=== PATIENT | female | born 1995 | race Caucasian/White ===

== ENCOUNTER 2018-02-16 13:01 | Outpatient (CLI) | payer OTHER ==
[2018-02-16 13:18] VITALS: BP 132/91
[2018-02-16] MEDS ORDERED: PRENATAL TABLE1 EAC3 PO (13:27)
[2018-02-16] MEDS ORDERED: IRON325 M1 PO (13:28)
[2018-02-16 13:40] VITALS: BP 119/80
[2018-02-16 14:36] LABS: BASOPHIL (%) 0.2 % (0-1); EOSINOPHIL (%) 0.2 % (0-5); HEMATOCRIT 33.3 % (36.0-46.0); HEMOGLOBIN 11.2 G/DL (11.9-15.5); LYMPHOCYTE (%) 15.4 % (15-42); MCH 29.4 PG (29.0-34.0); MCHC 33.6 G/DL (30.0-36.0); MCV 87.4 FL (83-99); MONOCYTE (%) 6.1 % (3-12); MONOCYTE COUNT 0.8 K/uL (0-0.8); NEUTROPHIL (%) 77.1 % (45-76); NEUTROPHIL COUNT 9.8 K/uL (1.8-6.4); PLATELET COUNT 286 K/uL (156-360); RBC DIS.WIDTH-CV 12.7 % (11.8-14.6); RED BLOOD COUNT 3.81 M/uL (3.80-5.20); WHITE BLOOD COUNT 12.7 K/uL (4.1-10.2)
[2018-02-16 15:03] LABS: ALBUMIN 3.5 G/DL (3.2-4.8); ALKALINE PHOSPHATASE 123 IU/L (3-129); ALT (GPT) 11 IU/L (3-49); AST (GOT) 13 IU/L (2-34); CHLORIDE 109 MEQ/L (99-109); CREATININE 0.6 MG/DL (0.6-1.3); GFR ESTIMATE (CALCULATED) > 59 mL/min/; GLUCOSE 75 mg/dL (70-99); POTASSIUM 4.5 MEQ/L (3.7-5.4); SODIUM 140 MEQ/L (136-147); TOTAL BILIRUBIN 0.3 MG/DL (0.0-1.0); TOTAL PROTEIN 6.4 G/DL (6.4-8.3); UREA NITROGEN (BUN) 6 mg/dL (9-23)
== END 2018-02-16 15:15 | disposition home or self-care (01) ==
LOC: LDRP-OP 13:01 → 2WEST 13:02 → LDRP-OP 06-06 18:48
PROVIDERS: Advanced Practice Midwife
DX: O35.8XX0 Maternal care for other (suspected) fetal abnormality and damage, not applicable or unspecified (principal); Z3A.28 28 weeks gestation of pregnancy
CPT/HCPCS: 59025; 80053; 85025; G0378

== ENCOUNTER 2018-04-13 11:43 | Inpatient (IN) | payer BC ==
[2018-04-13] VITALS (18 sets, daily range): BP systolic 132–172; BP diastolic 84–108
[~2018-04-13] VITALS: Ht 160 cm; Wt 87.9 kg
[~2018-04-13 11:43] MED LIST: IRON325 M1 PO; PRENATAL TABLE1 EAC3 PO
[2018-04-13 13:05] LABS: BASOPHIL (%) 0.3 % (0-1); EOSINOPHIL (%) 0.2 % (0-5); HEMATOCRIT 34.2 % (36.0-46.0); LYMPHOCYTE (%) 17.4 % (15-42); MCH 29.6 PG (29.0-34.0); MCHC 35.1 G/DL (30.0-36.0); MCV 84.4 FL (83-99); MONOCYTE COUNT 0.7 K/uL (0-0.8); NEUTROPHIL (%) 75.1 % (45-76); NEUTROPHIL COUNT 8.8 K/uL (1.8-6.4); PLATELET COUNT 231 K/uL (156-360); RBC DIS.WIDTH-CV 13.2 % (11.8-14.6); RBC DIS.WIDTH-SD 40.1 % (39-53); RED BLOOD COUNT 4.05 M/uL (3.80-5.20); WHITE BLOOD COUNT 11.7 K/uL (4.1-10.2)
[2018-04-13 13:14] LABS: ALBUMIN 3.6 g/dL (3.2-4.8); CHLORIDE 108 mEq/L (99-109); POTASSIUM 3.8 mEq/L (3.7-5.4); SODIUM 140 mEq/L (136-147)
[2018-04-13 13:16] LABS: GLUCOSE 70 mg/dL (70-99)
[2018-04-13 13:18] LABS: TOTAL BILIRUBIN 0.3 mg/dL (0.0-1.0)
[2018-04-13 13:20] LABS: ALKALINE PHOSPHATASE 162 IU/L (3-129); CREATININE 0.8 mg/dL (0.6-1.3); GFR ESTIMATE (CALCULATED) > 59 mL/min/
[2018-04-13 13:21] LABS: UREA NITROGEN (BUN) 6 mg/dL (9-23)
[2018-04-13 13:22] LABS: AST (GOT) 17 IU/L (2-34)
[2018-04-13 13:23] LABS: ALT (GPT) 14 IU/L (3-49); URIC ACID 6.3 mg/dL (3.1-9.2)
[2018-04-13 13:57] LABS: AMPHETAMINE NEGATIVE (500 ng/mL); BARBITURATES NEGATIVE (200 ng/mL); BENZODIAZEPINES NEGATIVE (150 ng/mL); BUPRENORPHINE NEGATIVE (10 ng/mL); COCAINE NEGATIVE (150 ng/mL); METHADONE NEGATIVE (200 ng/mL); METHAMPHETAMINE NEGATIVE (500 ng/mL); OPIATES (MORPHINE) NEGATIVE (100 ng/mL); OXYCODONE NEGATIVE (100 ng/mL); PHENCYCLIDINE NEGATIVE (25 ng/mL); PROPOXYPHENE NEGATIVE (300 ng/mL); THC CANNABINOIDS NEGATIVE (50 ng/mL); TRICYCLIC ANTIDEPRESSANTS NEGATIVE (300 ng/mL)
[2018-04-13 14:00] LABS: LACTATE DEHYDROGENASE 250 IU/L (20-246)
[2018-04-13 14:08] LABS: UR CREATININE CONCENTRATION 94.6 MG/DL
[2018-04-14] VITALS (23 sets, daily range): BP systolic 98–153; BP diastolic 56–92
[2018-04-15] VITALS (37 sets, daily range): BP systolic 115–175; BP diastolic 62–98
[2018-04-15] MEDS ORDERED: IBUPROFEN800 MG PO (22:05)
[2018-04-16 00:01] VITALS: BP 129/86
[2018-04-16 03:00] VITALS: BP 128/81
[2018-04-16 07:06] VITALS: BP 128/76
[2018-04-16 14:55] VITALS: BP 142/94
[2018-04-16 23:00] VITALS: BP 123/67
[2018-04-17 07:11] VITALS: BP 135/94
[2018-04-17 08:04] VITALS: BP 143/99
[2018-04-17] MEDS ORDERED: LABETALOL HCL100 MG PO (09:05)
[2018-04-17 10:32] VITALS: BP 134/98
[2018-04-17 14:54] VITALS: BP 145/88
[2018-04-17 19:45] VITALS: BP 135/96
[2018-04-17 22:32] VITALS: BP 128/87
[2018-04-18 11:55] VITALS: BP 129/89
== END 2018-04-18 15:50 | disposition home or self-care (01) | DRG 774 ==
LOC: LDRP-OP 11:43 → 2WEST 11:44 → LDRP-OP 06-06 16:06
PROVIDERS: Obstetrics & Gynecology
DX: O41.03X0 Oligohydramnios, third trimester, not applicable or unspecified (principal); O36.5930 Maternal care for other known or suspected poor fetal growth, third trimester, not applicable or unspecified; O13.5 Gestational [pregnancy-induced] hypertension without significant proteinuria, complicating the puerperium; O14.95 Unspecified pre-eclampsia, complicating the puerperium; O99.214 Obesity complicating childbirth; Z3A.36 36 weeks gestation of pregnancy; Z37.0 Single live birth; Z68.30 Body mass index [BMI] 30.0-30.9, adult
CPT/HCPCS: 80053; 82570; 83615; 84156; 84550; 85025; 86850; 86900; 86901; 87081; 88307; C1755; G0378; J0595; J0702; J3010; J7120; Q0169